=== PATIENT | male | born 2000 | race Caucasian/White ===

== ENCOUNTER 2018-11-04 22:51 | Emergency (ER) | payer BC, SELFPAY ==
[2018-11-04 23:00] VITALS: BP 127/81; PULSE 76; RESP 20; O2SAT 98
[2018-11-04 23:03] VITALS: BP 132/85; PULSE 81; RESP 18; TEMP 37.3; O2SAT 98
[2018-11-04 23:10] VITALS: RESP 18
--- NOTE | 2018-11-04 23:20 | DI.RAD_ITS ---
SYMPTOM/DIAGNOSIS: RT CHEST PAIN PA AND LATERAL CHEST: The heart is normal in size. The lungs are clear. The mediastinal structures and pleura appear intact. CONCLUSION: Normal chest.
--- NOTE | 2018-11-04 23:20 | W.ED.GENAD ---
Discharge Plan Disposition Patient Disposition: HOME Condition: Improving Discharge Details Chief Complaint: Chest Pain Clinical Impression: Chest wall pain Primary Care Provider: None,None ED Provider: Tra Holloway Discharge Instructions Instructions: Chest Wall Pain (ED) Additional Instructions: Maintain hydration while working outside in the summer heat. Your chest x-ray and blood work were reassuring May use Tylenol or ibuprofen as needed for persistent discomfort. Return for any acute concerns while in this area. Please follow-up with your regular doctor upon your return home to [place]. 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 He said intermittent episodes of right-sided chest achy discomfort that lasts minutes to hours and resolves on its own. Was somewhat more pronounced this evening. Resolved by the time of arrival. Denies recent illness. He states that he was seen by research and development researcher and had an unremarkable echocardiogram at his home in [place]. He arrives with normal vital signs. His exam is reassuring. EKG is unremarkable. The laboratories are unremarkable. Patient's chest x-ray without acute findings. He likely has right chest wall strain. He is stable for discharge to home at this time. He will follow-up with his regular doctor upon return to home. He will return to the ER for any acute concerns while in this area. Lab Data Lab results reviewed: Yes I reviewed the patient's lab results. Laboratory Results - last 24 hr 11/04/18 11/04/18 11:40 11:40 WBC 8.79 RBC 5.19 Hgb 14.7 Hct 43.5 MCV 83.8 MCH 28.3 MCHC 33.8 RDW 13.6 Plt Count 234 MPV 9.9 Immature Gran % 0.2 Neutrophils % 67.3 Lymphocytes % 22.1 Monocytes % 7.8 Eosinophils % 2.3 Basophils % 0.3 Absolute Neutrophils 5.91 Absolute Lymphocytes 1.94 Absolute Monocytes 0.69 Absolute Eosinophils 0.20 Absolute Basophils 0.03 Sodium 143 Potassium 3.6 Chloride 106 Carbon Dioxide 26.5 Anion Gap 10.5 BUN 13 Creatinine 0.75 Estimated GFR/1.73 m2 >= 60.00 Glucose 104 H Calcium 8.9 Magnesium 2.0 Total Bilirubin 0.5 AST 16 ALT 30 Alkaline Phosphatase 70 Troponin I < 0.05 Total Protein 6.5 Albumin 3.9 ECG Data Attestation: I personally reviewed and interpreted this ECG (s) as follows: Interpretation: Normal sinus rhythm with a rate of 77, no acute ST segment changes, QRS narrow. HPI General Mode of arrival: ambulatory. Date/Time Provider Initiated Documentation: 11/04/18 22:57. Limitations to Documentation: no limitations. Information obtained by: patient. History of Present Illness 18 year old M presents to the emergency department with the chief complaint of Right-sided chest pain intermittently for weeks time, described as moderate, Quality is described as dull, and is localized to the chest and right. Patient reports no radiation. Patient started experiencing this hour(s) and it has been intermittent and now resolved. No relieving factors improve symptom(s), No exacerbating factors reported . Patient did receive the following treatments prior to arrival, none Related Data Allergies Allergy/AdvReac Type Severity Reaction Status Date / Time No Known Allergies Allergy Unverified 11/04/18 23:10 General Stated Complaint: Chest Pain FRANCESCA: 3 Review of Systems Review of Systems No lower extremity pain or swelling. No recent cough or illness. No fever. Has had intermittent chest pains for weeks and reports having unremarkable echocardiogram at home in [place]. 8 systems reviewed and otherwise negative. [facility] Social History Smoking/Tobacco Use Status: Never Alcohol Intake: never Substance use type: does not use Do you feel safe at home: Yes Do you feel safe in your relationship?: Yes Exam Narrative Exam Narrative: GEN: awake, alert, oriented 3. Pleasant, well groomed, interactive. HEAD: Normocephalic, atraumatic ENT: Mucous membranes moist, oropharynx unremarkable, External ear exam unremarkable EYES: PERRL, EOMI NECK: Full ROM, no VITALY, no menigismus CHEST/RESP: Tender right anterior chest, clear to auscultation bilateral, no wheeze/rhonchi/rales CARDIOVASCULAR: RRR, no murmur, rub samira. 2+ Rad pulse bilateral ABDOMEN: Soft, nontender, no mass. +Bowel sounds EXT: Full ROM, no edema, no rash Neuro: Grossly normal neurologic exam, conversant, interactive. Psych: Speech fluent, thoughts congruent, affect normal Course Vital Signs Temperature 37.3 C 11/04/18 23:03 Pulse 81 11/04/18 23:03 Respiratory Rate 18 11/04/18 23:03 Blood Pressure 132/85 11/04/18 23:03 Pulse Oximetry 98 11/04/18 23:03 Temperature 37.3 C 11/04/18 23:03 Temperature Source Temporal Artery Scan 11/04/18 23:03 Pulse 81 11/04/18 23:03 Respiratory Rate 18 11/04/18 23:10 Respiratory Effort Non-Labored 11/04/18 23:10 Respiratory Depth Normal 11/04/18 23:10 Respiratory Pattern Normal 11/04/18 23:10 Blood Pressure 132/85 11/04/18 23:03 Blood Pressure Position Supine 11/04/18 23:03 Pulse Oximetry 98 11/04/18 23:03 Oxygen Delivery Method Room Air 11/04/18 23:03 Oxygen Flow Rate 0 11/04/18 23:03 Pain Level 2 11/04/18 23:03
--- NOTE | 2018-11-04 23:23 | ED.GENADUL_ITS ---
Discharge Plan Disposition Patient Disposition: HOME Condition: Improving Discharge Details Chief Complaint: Chest Pain Clinical Impression: Chest wall pain Primary Care Provider: None,None ED Provider: Tra Holloway Discharge Instructions Instructions: Chest Wall Pain (ED) Additional Instructions: Maintain hydration while working outside in the summer heat. Your chest x-ray and blood work were reassuring May use Tylenol or ibuprofen as needed for persistent discomfort. Return for any acute concerns while in this area. Please follow-up with your regular doctor upon your return home to [place]. 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 He said intermittent episodes of right-sided chest achy discomfort that lasts minutes to hours and resolves on its own. Was somewhat more pronounced this evening. Resolved by the time of arrival. Denies recent illness. He states that he was seen by blender and had an unremarkable echocardiogram at his home in [place]. He arrives with normal vital signs. His exam is reassuring. EKG is unremarkable. The laboratories are unremarkable. Patient's chest x-ray without acute findings. He likely has right chest wall strain. He is stable for discharge to home at this time. He will follow-up with his regular doctor upon return to home. He will return to the ER for any acute concerns while in this area. Lab Data Lab results reviewed: Yes I reviewed the patient's lab results. Laboratory Results - last 24 hr 11/04/18 11/04/18 11:40 11:40 WBC 8.79 RBC 5.19 Hgb 14.7 Hct 43.5 MCV 83.8 MCH 28.3 MCHC 33.8 RDW 13.6 Plt Count 234 MPV 9.9 Immature Gran % 0.2 Neutrophils % 67.3 Lymphocytes % 22.1 Monocytes % 7.8 Eosinophils % 2.3 Basophils % 0.3 Absolute Neutrophils 5.91 Absolute Lymphocytes 1.94 Absolute Monocytes 0.69 Absolute Eosinophils 0.20 Absolute Basophils 0.03 Sodium 143 Potassium 3.6 Chloride 106 Carbon Dioxide 26.5 Anion Gap 10.5 BUN 13 Creatinine 0.75 Estimated GFR/1.73 m2 >= 60.00 Glucose 104 H Calcium 8.9 Magnesium 2.0 Total Bilirubin 0.5 AST 16 ALT 30 Alkaline Phosphatase 70 Troponin I < 0.05 Total Protein 6.5 Albumin 3.9 ECG Data Attestation: I personally reviewed and interpreted this ECG (s) as follows: Interpretation: Normal sinus rhythm with a rate of 77, no acute ST segment changes, QRS narrow. HPI General Mode of arrival: ambulatory . Date/Time Provider Initiated Documentation: 11/04/18 22:57 . Limitations to Documentation: no limitations . Information obtained by: patient . History of Present Illness 18 year old M presents to the emergency department with the chief complaint of Right-sided chest pain intermittently for weeks time, described as moderate, Quality is described as dull, and is localized to the chest and right. Patient reports no radiation. Patient started experiencing this hour(s) and it has been intermittent and now resolved. No relieving factors improve symptom(s), No exacerbating factors reported . Patient did receive the following treatments prior to arrival, none Related Data Allergies Allergy/AdvReac Type Severity Reaction Status Date / Time No Known Allergies Allergy Unverified 11/04/18 23:10 General Stated Complaint: Chest Pain FRANCESCA: 3 Review of Systems Review of Systems No lower extremity pain or swelling. No recent cough or illness. No fever. Has had intermittent chest pains for weeks and reports having unremarkable echocardiogram at home in [place]. 8 systems reviewed and otherwise negative. [facility] Social History Smoking/Tobacco Use Status: Never Alcohol Intake: never Substance use type: does not use Do you feel safe at home: Yes Do you feel safe in your relationship?: Yes Exam Narrative Exam Narrative: GEN: awake, alert, oriented 3. Pleasant, well groomed, interactive. HEAD: Normocephalic, atraumatic ENT: Mucous membranes moist, oropharynx unremarkable, External ear exam unremarkable EYES: PERRL, EOMI NECK: Full ROM, no VITALY, no menigismus CHEST/RESP: Tender right anterior chest, clear to auscultation bilateral, no wheeze/rhonchi/rales CARDIOVASCULAR: RRR, no murmur, rub samira. 2+ Rad pulse bilateral ABDOMEN: Soft, nontender, no mass. +Bowel sounds EXT: Full ROM, no edema, no rash Neuro: Grossly normal neurologic exam, conversant, interactive. Psych: Speech fluent, thoughts congruent, affect normal Course Vital Signs Temperature 37.3 C 11/04/18 23:03 Pulse 81 11/04/18 23:03 Respiratory Rate 18 11/04/18 23:03 Blood Pressure 132/85 11/04/18 23:03 Pulse Oximetry 98 11/04/18 23:03 Temperature 37.3 C 11/04/18 23:03 Temperature Source Temporal Artery Scan 11/04/18 23:03 Pulse 81 11/04/18 23:03 Respiratory Rate 18 11/04/18 23:10 Respiratory Effort Non-Labored 11/04/18 23:10 Respiratory Depth Normal 11/04/18 23:10 Respiratory Pattern Normal 11/04/18 23:10 Blood Pressure 132/85 11/04/18 23:03 Blood Pressure Position Supine 11/04/18 23:03 Pulse Oximetry 98 11/04/18 23:03 Oxygen Delivery Method Room Air 11/04/18 23:03 Oxygen Flow Rate 0 11/04/18 23:03 Pain Level 2 11/04/18 23:03
[2018-11-04 23:30] VITALS: BP 130/85; PULSE 68; RESP 18; O2SAT 97
[2018-11-04 23:41] LABS: Abs Immature Grans 0.02 k/cumm (0.0-0.09); Absolute Basophil Count 0.03 k/cumm (0.0-0.2); Absolute Lymphocyte Count 1.94 k/cumm (1.2-3.4); Absolute Monocyte Count 0.69 k/cumm (0.11-0.7); Absolute Neutrophil Count 5.91 k/cumm (1.2-6.7); Basophils % 0.3; Eosinophils % 2.3; HCT 43.5 % (40.0-50.0); HGB 14.7 g/dL (13.5-17.5); Immature Grans % 0.2; Lymphocytes % 22.1; Mean Corp. HGB Concentration 33.8 g/dL (32.0-36.0); Mean Corpuscular Hemoglobin 28.3 pg (27.0-33.0); Mean Corpuscular Volume 83.8 fL (80-95); Mean Platelet Volume 9.9 fL (8.0-11.0); Monocytes % 7.8; Neutrophils % 67.3; Platelet Count 234 x1000/uL (130-400); RBC 5.19 m/cumm (4.50-6.00); RBC Distribution Width 13.6 % (11.8-14.1); White Blood Cell Count 8.79 k/cumm (4.4-10.8)
[2018-11-04 23:45] VITALS: BP 134/78; PULSE 71; RESP 20; O2SAT 97
[2018-11-04 23:58] LABS: ALT 30 U/L (12-78); AST 16 U/L (15-37); Albumin 3.9 g/dL (3.4-5.0); Alkaline Phosphatase 70 U/L (46-116); Anion Gap 10.5 mmol/L (3-11); BUN 13 mg/dL (7-18); Bilirubin, Total 0.5 mg/dL (0.2-1.0); CO2 26.5 mmol/L (21.0-32.0); CREATININE 0.75 mg/dL (0.70-1.30); Calcium 8.9 mg/dL (8.5-10.1); Chloride 106 mmol/L (98-107); Glucose 104 mg/dL (70-100); Potassium 3.6 mmol/L (3.5-5.1); Sodium 143 mmol/L (136-145); Total Protein 6.5 g/dL (6.4-8.2); Troponin I < 0.05 ng/mL (0.00-0.06)
[2018-11-05] VITALS: BP 130/91; PULSE 81; RESP 20; O2SAT 97
--- NOTE | 2018-11-05 00:07 | DI.VRAD_ITS ---
EXAM: XR Chest, 2 Views EXAM DATE/TIME: 11/04/2018 23:47 CLINICAL HISTORY: 18 years old, male; Right-sided chest pain; Patient HX: R chest pain TECHNIQUE: Imaging protocol: XR of the chest, 2 views. COMPARISON: No relevant prior studies available. FINDINGS: Lungs: No consolidation. Pleural space: No pleural effusion. No pneumothorax. Heart/Mediastinum: No cardiomegaly. Bones/joints: No acute fracture. IMPRESSION: No acute cardiopulmonary pathology. Dictated and Authenticated by: Shea Karimi MD. Ordering:TIANA Dutta MD
[2018-11-05 00:15] VITALS: BP 134/76; PULSE 74; RESP 20; O2SAT 98
[2018-11-05 00:37] VITALS: BP 132/85; PULSE 81; RESP 18; O2SAT 98
== END 2018-11-05 00:18 | disposition home or self-care (01) ==
PROVIDERS: Emergency Provider Emergency Medicine
DX: R07.89 Other chest pain (principal)
CPT/HCPCS: 36415; 80053; 93005; 99285; 71046; 83735; 84484; 85025; 93010; 99284